=== PATIENT | male | born 1990 | race Two or more races ===

== ENCOUNTER 2016-09-21 19:45 | Emergency (ER) | payer OTHER ==
[~2016-09-21] VITALS: Ht 167.6 cm; Wt 79.4 kg
[2016-09-21] MEDS ORDERED: FLUP5TAB PO (20:10)
[2016-09-21] MEDS ORDERED: CARB200T PO (20:10)
[2016-09-21] MEDS ORDERED: BENZ1TAB7 PO (20:10)
--- NOTE | 2016-09-21 20:15 | NUR ---
Pt biba for attempting to [place] moving car on the free[place]. When asked why he did it pt sts " I have bad behavior". Per father pt is autistic. Pt has no physical complaints, no obvious signs of distress, resting in position of comfort for self. Father at bedside, awaiting further eval.
[2016-09-21] MEDS ORDERED: LORAZEPAM 0.5 MG TABLET PO ONE (20:30)
[2016-09-21] MEDS ORDERED: LORAZEPAM 1 MG TABLET ONE (20:39)
--- NOTE | 2016-09-21 21:00 | NUR ---
Pt seen by MD. Pt medicated for agitation. Pt stable for discharge per MD. Father and pt given ACI. Father verbalized understanding of dc instructions. Pt ambulated out of er with steady gait and ride home
[2016-09-21 22:09] VITALS: BP 129/66
== END 2016-09-21 21:00 | disposition home or self-care (01) ==
LOC: ER 19:45
DX: F84.0 Autistic disorder (principal); R45.1 Restlessness and agitation; Z88.8 Allergy status to other drugs, medicaments and biological substances
CPT/HCPCS: A4663

== ENCOUNTER 2022-10-16 11:16 | Emergency (ER) | payer MEDICAID, OTHER ==
[~2022-10-16] VITALS: Ht 172.7 cm; Wt 102.1 kg
[~2022-10-16 11:16] MED LIST: BENZ1TAB7 PO; CARB200T PO; FLUP5TAB14 PO
[2022-10-16 11:42] VITALS: BP 123/70; O2SAT 98
== END 2022-10-16 11:58 | disposition home or self-care (01) ==
LOC: ER 11:16
DX: J06.9 Acute upper respiratory infection, unspecified (principal); Z88.8 Allergy status to other drugs, medicaments and biological substances; Z79.899 Other long term (current) drug therapy; Z20.822 Contact with and (suspected) exposure to COVID-19
CPT/HCPCS: A4663